=== PATIENT | male | born 1945 | race Caucasian/White ===

== ENCOUNTER 2022-05-11 09:33 | Day surgery (SDC) | payer MEDICARE ==
[~2022-05-11] VITALS: Ht 172.7 cm; Wt 70.0 kg
[~2022-05-11 09:33] MED LIST: COSENTYX S150 MG/1 M; HUMALOG KW100 UNIT/1
--- NOTE | 2022-05-11 11:16 | NUR ---
05/11/22 1116 Sander Yousif CALL LIGHT WITHIN REACH. TETRACAINE IN RIGHT EYE AT 1107 AND PLEDGETT AT 1109
--- NOTE | 2022-05-11 12:00 | NUR ---
05/11/22 1200 Alvaro Daniel PT REQUESTING NO SEDATION DURING SURGERY. OK PER DR SALDIVAR & DR WOLF. RN TO MONITOR PT VITALS DURING SURGERY. VSS. TOLERATED WELL.
--- NOTE | 2022-05-11 12:39 | NUR ---
05/11/22 1239 Chon Arana PT RECIEVED NO SEDATION AND IS DRIVING SELF HOME.
== END 2022-05-11 12:35 | disposition home or self-care (01) ==
LOC: ORSCSDS 09:33
PROVIDERS: Ophthalmology
PROC: 08DJ3ZZ Extraction of Right Lens, Percutaneous Approach (ICD-10-PCS; principal; 2022-05-11 11:30)
DX: E11.9 Type 2 diabetes mellitus without complications (principal); H25.11 Age-related nuclear cataract, right eye; Z79.4 Long term (current) use of insulin; Z79.899 Other long term (current) drug therapy
CPT/HCPCS: 82947; J2001; J3301; J7040; V2632

== ENCOUNTER 2022-05-18 07:23 | Day surgery (SDC) | payer MEDICARE ==
[~2022-05-18] VITALS: Ht 170.2 cm; Wt 70.4 kg
--- NOTE | 2022-05-18 09:25 | NUR ---
05/18/22 0925 Alvaro Daniel NO SEDATION, NURSE MONITOR PER PT REQUEST. VSS THOUGHOUT. PT TOLERATED PROCEDURE WELL. NO COMPLAINTS OF PAIN OR DISCOMFORT.
== END 2022-05-18 10:06 | disposition home or self-care (01) ==
LOC: ORSCSDS 07:23
PROVIDERS: Ophthalmology
PROC: 08DK3ZZ Extraction of Left Lens, Percutaneous Approach (ICD-10-PCS; principal; 2022-05-18 09:00)
DX: E11.36 Type 2 diabetes mellitus with diabetic cataract (principal); H25.12 Age-related nuclear cataract, left eye; Z96.1 Presence of intraocular lens; N04.9 Nephrotic syndrome with unspecified morphologic changes; Z79.4 Long term (current) use of insulin
CPT/HCPCS: 82947; J2001; J3301; J7040; V2632